=== PATIENT | male | born 1995 | race American Indian/Alaskan Native ===

== ENCOUNTER 2019-05-17 11:25 | Emergency (ER) | payer SELFPAY ==
--- NOTE | 2019-05-17 11:36 | Event Note ---
ED Screening Note ED Screening Note: cough for a couple months has discomfort with coughing in ribs/chest mucus production has been taking nyquil and robitussin no fever no SOB pmhx none no allergies to meds non smoker occ drinker no sick contact no recent travel This initial assessment/diagnostic orders/clinical plan/treatment(s) is/are garner bject to change based on patients health status, clinical progression and re- assessment by fellow clinical providers in the ED. Further treatment and workup at subsequent clinical providers discretion. Patient/guardian urged not to elope from the ED as their condition may be serious if not clinically assessed and managed. Initial orders include: CXR
[2019-05-17 11:40] VITALS: BP 155/98
--- NOTE | 2019-05-17 12:35 | Emergency Department Report ---
Minor Respiratory - HPI Chief Complaint: Upper Respiratory Infection Stated Complaint: CP,HEADACHE RUNNY NOSE Time Seen by Provider: 05/17/19 11:33 Minor Respiratory: Yes Rhinorrhea, Yes Able to Tolerate Fluids, Yes Cough (X1 year), Yes Chest Pain (With deep inhalation), No Sore Throat, No Ear Pain, No Sick Contacts, No Hemoptysis, No Shortness of Breath, No Fever Other History: 23-year-old -Citizen Of The [place] male presents to the emergency room complaining of chest pain and rib pain with inhalation, headache and runny nose times a year. Patient states that he coughed up green mucus and white mucus for 4 months. Patient reports taking qupe-ovj-gkokapv medications has not helped. Patient denies any shortness of breath no nausea no vomiting no diarrhea. He does admit to headache and runny nose and nasal congestion. ED Review of Systems ROS: Stated complaint: CP,HEADACHE RUNNY NOSE Other details as noted in HPI Comment: All other systems reviewed and negative ED Past Medical Hx - Past Medical History Previous Medical History?: No - Surgical History Past Surgical History?: No - Social History Smoking Status: Never Smoker Substance Use Type: Alcohol Minor Respiratory Exam - Exam General: Vital signs noted. No distress. Alert and acting appropriately. HEENT: Yes Moist Mucous Membranes, No Pharyngeal Erythema, No Pharyngeal Exudates, No Rhinorrhea, No Conjuctival Injection, No Frontal Tenderness, No Maxillary Tenderness Neck: Yes Supple, No Adenopathy Lungs: Yes Good Air Exchange, No Wheezes, No Ronchi, No Stridor, No Cough, No Labored Respirations, No Retractions, No Use of Accessory Muscles, No Other Abnormal Lung Sounds Heart: Yes Regular Abdomen: Yes Normal Bowel Sounds, No Tenderness, No Peritoneal Signs Skin: No Rash, No Edema Neurologic: Alert and oriented, no deficits. Musculoskeletal: Unremarkable. ED Course Vital Signs 05/17/19 11:32 Temperature 98.5 F Pulse Rate 91 H Respiratory 18 Rate Blood Pressure 155/98 [Right] O2 Sat by Pulse 96 Oximetry ED Medical Decision Making - Radiology Data Radiology results: report reviewed Referring Physician:GEOFF LYNNPatient Name:CHANTE BUTTSPatient ID:[id number] of :[id number]:MaleAccession:[id number] Date:2230-21-03Gysjev Status:Finalized Findings [facility] [address] [place] [address] XRay Report Signed Patient: CHANTE BUTTS MR#: [id number] : 1995 Acct:[id number] Age/Sex: 23 / M ADM Date: 05/17/19 Loc: ED Attending Dr: Ordering Physician: ELMA CASTANON Date of Service: 05/17/19 Procedure(s): XR chest routine 2V Accession Number(s): [id number] cc: ELMA CASTANON Fluoro Time In Minutes: CHEST 2 VIEWS INDICATION / CLINICAL INFORMATION: productive cough x 2 months. COMPARISON: None available. FINDINGS: SUPPORT DEVICES: None. HEART / MEDIASTINUM: No significant abnormality. LUNGS / PLEURA: No significant pulmonary or pleural abnormality. No pneumothorax. ADDITIONAL FINDINGS: No significant additional findings. IMPRESSION: No significant abnormality Signer Name: Suman Gresham MD FACR Signed: 05/17/2019 12:59 PM Workstation Name: [id number] Transcribed By: MS Dictated By: Suman Gresham MD Electronically Authenticated By: Suman Gresham MD Signed Date/Time: 05/17/19 125 DD/ 58 TD/TT: - Medical Decision Making 23-year-old -Citizen Of [place] male presents to the emergency room complaining of chest pain and rib pain with inhalation, headache and runny nose times a year. Patient states that he coughed up green mucus and white mucus for 4 months. Patient reports taking lnup-adk-ulfript medications has not helped. Patient denies any shortness of breath no nausea no vomiting no diarrhea. He does admit to headache and runny nose and nasal congestion. Chest x-ray shows no acute abnormalities. I recommended to take ibuprofen or Tylenol for rib pain. Take Claritin or Zyrtec's and Flonase or Nasonex for allergic rhinitis. Follow-up with your primary care provider if your symptoms persist or gets worse Critical care attestation.: If time is entered above; I have spent that time in minutes in the direct care of this critically ill patient, excluding procedure time. ED Disposition Clinical Impression: Allergic rhinitis, Headache, Nasal congestion with rhinorrhea Disposition: TO HOME OR SELFCARE Is pt being admited?: No Does the pt Need Aspirin: No Condition: Stable Instructions: Allergic Rhinitis (ED) Additional Instructions: Chest x-ray shows no acute abnormalities. I recommended to take ibuprofen or Tylenol for rib pain. Take Claritin or Zyrtec's and Flonase or Nasonex for allergic rhinitis. Follow-up with your primary care provider if your symptoms persist or gets worse Referrals: PRIMARY CARE, [Primary Care Provider] - 3-5 Days [facility] [Provider Group] - 3-5 Days
[2019-05-17] MEDS ORDERED: IBUPROFEN 600 MG TAB PO ONE (12:43)
--- NOTE | 2019-05-17 13:03 | XRay Report ---
CHEST 2 VIEWS INDICATION / CLINICAL INFORMATION: productive cough x 2 months. COMPARISON: None available. FINDINGS: SUPPORT DEVICES: None. HEART / MEDIASTINUM: No significant abnormality. LUNGS / PLEURA: No significant pulmonary or pleural abnormality. No pneumothorax. ADDITIONAL FINDINGS: No significant additional findings. IMPRESSION: No significant abnormality Signer Name: Suman Gresham MD FACR Signed: 05/17/2019 12:59 PM Workstation Name: [email or web address]
== END 2019-05-17 13:38 | disposition home or self-care (01) ==
LOC: ED 11:25
DX: J30.9 Allergic rhinitis, unspecified (principal); R51 Headache; R09.81 Nasal congestion; J34.89 Other specified disorders of nose and nasal sinuses
CPT/HCPCS: 71046; 99283